=== PATIENT | female | born 1955 | race Asian ===

== ENCOUNTER 2017-06-08 13:24 | Emergency (ER) | payer BC ==
[~2017-06-08] VITALS: Ht 154.9 cm; Wt 73.0 kg
[2017-06-08] MEDS ORDERED: LOVA10TA PO (14:34)
[2017-06-08] MEDS ORDERED: OMEP20TA62 PO (14:34)
[2017-06-08] MEDS ORDERED: AMLO5TAB2 PO (14:34)
[2017-06-08] MEDS ORDERED: MAALOX/HYOSCYAMINE/LIDOCAINE 45 ML BTL ONE (14:35)
[2017-06-08 14:48] LABS: HEMATOCRIT 44.4 % (34.6-47.8); WHITE BLOOD COUNT 7.1 x10^3/uL (3.4-10)
[2017-06-08 15:00] LABS: ASPARTATE AMINO TRANSFERASE 24 U/L (15-37); BLOOD UREA NITROGEN 14 mg/dL (7-18)
[2017-06-08] MEDS ORDERED: MAALOX/HYOSCYAMINE/LIDOCAINE 45 ML BTL PO ONE (15:00)
[2017-06-08 15:05] LABS: IS PT STATUS REG ER OR PRE ER? YES
[2017-06-08] MEDS ORDERED: LORazepam 1MG TABLET ONE (15:12)
[2017-06-08] MEDS ORDERED: LORazepam 1MG TABLET PO ONE (15:30)
[2017-06-08 16:15] VITALS: BP 163/92
== END 2017-06-08 16:41 | disposition home or self-care (01) ==
LOC: ED 15:45
DX: R07.89 Other chest pain (principal); I10 Essential (primary) hypertension; E78.5 Hyperlipidemia, unspecified
CPT/HCPCS: 36415; 71010; 80053; 83690; 84484; 85025; 93005; 99285